=== PATIENT | male | born 1950 | race Caucasian/White ===

== ENCOUNTER → 2024-01-16 06:22 | Day surgery (SDC) | payer MEDICARE, OTHER, SELFPAY | LOC: GI 06:22 | PROVIDERS: ATTENDING PHYSICIAN Specialist | DX: Z12.11 Encounter for screening for malignant neoplasm of colon (principal); K57.30 Diverticulosis of large intestine without perforation or abscess without bleeding; K64.8 Other hemorrhoids; K29.70 Gastritis, unspecified, without bleeding; K22.89 Other specified disease of esophagus; R12 Heartburn; Z86.010 Personal history of colon polyps; Z80.0 Family history of malignant neoplasm of digestive organs | CPT/HCPCS: 45378; 43239; 88305 ==

== ENCOUNTER → 2024-03-18 07:37 | Outpatient (REF) | payer MEDICARE, OTHER, SELFPAY | LOC: RAD 07:37 | PROVIDERS: ATTENDING PHYSICIAN Specialist; FAMILY PHYSICIAN Family Medicine | DX: R51.9 Headache, unspecified (principal) | CPT/HCPCS: 70470; Q9967 ==

== ENCOUNTER → 2024-12-02 10:46 | Outpatient (REF) | payer MEDICARE, OTHER, SELFPAY ==
[2024-12-02 11:36] LABS: % Basophils 0.4 % (0-2); % Eosinophils 1.2 % (0-6); % Immature Granulocytes 0.4 % (0-0.5); % Lymphocytes 17.3 % (20.5-51.1); % Neutrophils 72.7 % (42.2-75.2); Absolute Eosinophils 0.1 10^3/uL (0-0.7); Absolute Lymphocytes 1.7 10^3/uL (1.2-3.4); Absolute Monocytes 0.8 10^3/uL (0.1-0.6); Absolute Neutrophils 7.1 10^3/uL (1.4-6.5); Hematocrit 49.7 % (39.0-52.0); Hemoglobin 17.2 g/dL (13.0-18.0); Mean Corp Hgb Conc. 34.6 g/dL (33.0-37.0); Mean Corpuscular Hgb 31.1 pg (27.0-31.0); Mean Corpuscular Volume 89.9 fL (80.0-94.0); Mean Platelet Volume 9.4 fL (7.4-10.4); Nucleated Red Blood Cells % 0 % (-); Platelet Count 210 10^3/uL (130-400); Red Blood Cell Count 5.53 10^6/uL (4.70-6.10); Red Cell Dist. Width 12.8 % (11.5-14.5); White Blood Cell Count 9.8 10^3/uL (4.8-10.8)
[2024-12-02 13:03] LABS: ALT (SGPT) 26 U/L (0-50); AST (SGOT) 25 U/L (17-59); Albumin 4.8 g/dl (3.5-5.0); Alkaline Phosphatase 86 U/L (38-126); Blood Urea Nitrogen 12 mg/dl (9-20); Calcium 9.6 mg/dl (8.4-10.2); Carbon Dioxide 29 mmol/L (22-30); Chloride 98 mmol/L (98-107); Glucose 92 mg/dl (70-99); Potassium 4.1 mmol/L (3.5-5.1); Sodium 137 mmol/L (135-145); Total Bilirubin 1.1 mg/dl (0.2-1.3); Total Protein 7.4 g/dl (6.3-8.2); eGFR > 60.00
[2024-12-02 13:47] LABS: Total Cholesterol 156 mg/dl (50-199); Triglyceride 68 mg/dl (10-149); Very Low Density Lipoprotein 13 mg/dl (0-30)
[2024-12-02 13:57] LABS: HDL Cholesterol 44 mg/dl; LDL Cholesterol, Calculated 99 mg/dl
== END ==
LOC: RAD 10:46
PROVIDERS: ATTENDING PHYSICIAN Family Medicine
DX: K57.92 Diverticulitis of intestine, part unspecified, without perforation or abscess without bleeding (principal); Z79.899 Other long term (current) drug therapy; K21.9 Gastro-esophageal reflux disease without esophagitis
CPT/HCPCS: 36415; 74177; 80053; 80061; 85025; Q9967

== ENCOUNTER → 2025-02-17 08:22 | Outpatient (REF) | payer MEDICARE, OTHER, SELFPAY | LOC: RAD 08:22 | PROVIDERS: ATTENDING PHYSICIAN Specialist; FAMILY PHYSICIAN Family Medicine | DX: R05.3 Chronic cough (principal) | CPT/HCPCS: 71046 ==

== ENCOUNTER 2025-07-07 22:55 | Emergency (ER) | payer MEDICARE, OTHER, SELFPAY ==
[2025-07-07 23:01] VITALS: BP 140/74
[2025-07-07 23:14] VITALS: BP 128/81
[2025-07-07 23:17] VITALS: BMI 24.1
--- NOTE | 2025-07-07 23:40 | ED.GENMED ---
History of Present Illness
General
Chief Complaint: Bowel Problem
Source: patient
Exam Limitations: none
Time Seen by Provider: 07/07/25 23:37
Nursing documentation reviewed up to this point in time: agreed with
History of Present Illness
History of Present Illness:
Note:
CHIEF COMPLAINT(S)
Abdominal pain with diarrhea and bloody stools
HISTORY OF PRESENT ILLNESS
The patient is a 74-year-old male with a history of ischemic colitis, suspected TIA, diverticulosis, GERD, who presents with abdominal pain, diarrhea, and bloody stools. Symptoms began yesterday with mild pain that felt similar to needing to
defecate but resolved spontaneously. Last night, the patient experienced sharp abdominal pain localized to the center and lower abdomen which resolved within 15 minutes. Following this, the patient experienced diarrhea, initially forming, then
loose, with episodes of red blood. The patient reports a significant amount of blood initially, which decreased with subsequent bowel movements and the last bowel movement he had was blood free. He has not had a bowel movement since. The patient
denies any similar bleeding since 2018, when hospitalized for ischemic colon and gastrointestinal bleeding. He was treated non-surgically with antibiotics. The most recent episode of diverticulitis occurred 6-7 months ago without bleeding, also
treated with antibiotics such as Flagyl. The patient has had no vomiting, fever, but experienced chills. The pain was sharp, resolved after a few minutes, and did not recur spontaneously since arrival at the facility. The patient denies any recent
pertinent change in bowel habits, except for constipation in the past for which he started daily fiber supplementation. Patient reports no history of atrial fibrillation.
PAST MEDICAL AND SURGICAL HISTORY
Ischemic colitis versus infectious colitis leading to hospital admission in 2018 with non-surgical management.
History of diverticulitis, most recent episode 6-7 months ago.
Scheduled for knee replacement surgery evaluation.
EXTERNAL RECORDS REVIEWED
According to the patient, they underwent colonoscopic evaluations approximately a year ago with findings of polyps but otherwise unremarkable. Follow-up with a application integrator, Dr. johnson, was reported.
CHRONIC MEDICAL CONDITIONS SIGNIFICANTLY AFFECTING CARE
Ischemic colon
Diverticulitis
SOCIAL DETERMINANTS AFFECTING HEALTH
No social determinants affecting health were discussed during this visit.
MEDICATIONS
Aspirin (baby aspirin).
REVIEW OF SYSTEMS
- Gastrointestinal: Diarrhea with blood, episodes of abdominal pain, no nausea or vomiting.
- Constitutional: Chills without fever or confirmed elevated temperature.
PHYSICAL EXAM
General: Alert, no acute distress.
Skin: Warm, dry.
Head: Normocephalic, atraumatic.
Neck: Supple, trachea midline.
Eyes, Ears, Nose, Mouth, and Throat: Oral mucosa moist.
Cardiovascular: Normal peripheral perfusion, No edema.
Respiratory: Respirations are non-labored.
Gastrointestinal: Abdomen nondistended, nontender to palpation
Back: Normal range of motion, Normal alignment.
Musculoskeletal: Normal ROM, normal strength.
Neurological: Alert and oriented to person, place, time, and situation, No focal neurological deficit observed.
Psychiatric: Cooperative, appropriate mood & affect.
PLAN
1. Perform a CT scan
2. Complete blood work to assess for potential anemia or other abnormalities.
3. Ensure follow-up with application integrator for continuity of care.
DIFFERENTIAL DIAGNOSIS
The Differential Diagnosis includes, in no particular order and is not limited to:
- Diverticulitis
- Gastrointestinal bleeding secondary to ischemic bowel disease
- Infectious and was treated with IV (e.g., due to Shigella or E. coli)
- Inflammatory bowel disease
- Colonic polyps or malignancy
- Hemorrhoidal bleeding
- Peptic ulcer disease with bleeding
- Mesenteric ischemia
- Foodborne illness
- Coagulopathy-induced gastrointestinal bleeding
CHART REVIEW
Reviewed discharge note from 08/12/2017, patient seen for colitis he was treated with IV fluids, IV antibiotics, and conservative care and he had slow improvement. He was discharged on antibiotics however they do feel that his presentation
represented possible component of ischemic colitis
Reviewed colonoscopy from 01/08/2024 patient seen for colonoscopy had scattered small mouth diverticula and internal hemorrhoids with no indication for repeat colonoscopy due to absence of polyps
MDM/DISPOSITION
The patient is a 74-year-old male with a history of ischemic colitis, suspected TIA, diverticulosis, GERD, who presents with abdominal pain, diarrhea, and bloody stools. Symptoms began yesterday with mild pain that felt similar to needing to
defecate but resolved spontaneously. Currently, he is comfortable and gets intermittent crampy pain. He has not had a bowel movement since he has been in the ER. Did attempt to get stool sample however patient is not able to provide 1. His
vitals are stable he is afebrile. Reviewed blood work, no leukocytosis noted increase in immature granulocytes. CMP unremarkable. CT scan shows segmental colitis associated with diverticulosis. Will intiate abx considering elderly patient,
large-volume bloody diarrhea. Stressed follow-up with Dr. Johnson. Did offer patient admission for symptomatic management and IV antibiotics however patient is afebrile, has no white count, and feels improved. Want to go home. Think this is
reasonable. Patient stable for discharge.
Past History
Past History
ED Past Medical History: GERD and Other (Previous TIA on aspirin, diverticulosis, previous L4-L5 laminectomy, recent fractured scaphoid on his right wrist. Ischemic colitis)
ED Past Surgical History: Orthopedic
Social History
Tobacco: Non-smoker
Alcohol: Occasional
Drug: None
Personal:
Living: with family
Family History
Family History: Negative Diabetes, Hypertension or CAD
Review of Systems
Review of Systems
All Other Systems: ROS reviewed and negative except as documented in HPI and ROS
Phy Exam
Physical Exam
Physical Exam:
see hpi
Course
Orders/Labs/Results
Orders:
Orders
07/07/25 23:50
Complete Blood Count/With Diff Urgent
Lactic Acid Urgent
07/07/25 23:55
0.9% Sodium Chloride 500 ml [Nss] 500 ml IV BOLUS
07/08/25
CT Abd/Pel (IV only)-DH only Urgent
Reason For Exam: left sided ab pain
07/08/25 01:30
Urinalysis Reflex To Culture Urgent
Urine Microscopic Reflex Cult Urgent
07/08/25 01:47
Comprehensive Metabolic Panel Urgent
07/08/25 04:38
Ciprofloxacin HCl [Cipro] 500 mg PO NOW STA
07/08/25 04:46
MetroNIDAZOLE [Flagyl] 500 mg PO NOW STA
Abnormal Lab Results
07/08/25 07/08/25 07/08/25
00:04 01:30 01:47
MCH 31.1 H pg
(27.0-31.0)
Abs Immat Gran (auto) 0.1 H 10^3/uL
(0-0.05)
Absolute Neuts (auto) 7.5 H 10^3/uL
(1.4-6.5)
Absolute Lymphs (auto) 1.0 L 10^3/uL
(1.2-3.4)
Absolute Monos (auto) 0.8 H 10^3/uL
(0.1-0.6)
Immature Gran % 1.5 H %
(0-0.5)
Neutrophils % 78.8 H %
(42.2-75.2)
Lymphocytes % 10.3 L %
(20.5-51.1)
Chloride 109 H mmol/L
(98-107)
Glucose 101 H mg/dl
(70-99)
Ur Occult Blood Reflex 2+ A
(Negative)
Urine RBC 7-10 A /HPF
(0-2)
Urine Albumin (Reflex) 1+ A
(Neg - Trace)
07/08/25 00:04
07/08/25 01:47
Vital Signs
Initial and Last Documented VS:
Initial Vital Signs
Temp Pulse Resp BP Pulse Ox
98 F 76 22 140/74 96
07/07/25 23:01 07/07/25 23:01 07/07/25 23:01 07/07/25 23:01 07/07/25 23:01
Last Documented Vital Signs
Temp Pulse Resp BP Pulse Ox
98 F 84 14 129/80 97
07/07/25 23:01 07/08/25 01:20 07/08/25 01:20 07/08/25 04:51 07/08/25 01:20
*Pulse Oximetry
SaO2: 96
Oxygen Mode of Delivery: Room air
Patient hypoxic: no
*Critical Care Note
Total Time (30-74mins, 75-104mins- exclusive of procedures): Not Applicable
ED Attending Note
-
Portions of this chart may have been created with voice recognition software.� Occasional wrong word or��sound alike� substitutions may have occurred due to the inherent limitations of voice recognition software.
Discharge Plan
Departure
Patient Disposition: Home (Routine Discharge)
Date of Disposition: 07/08/25
Time of Disposition: 04:52
Patient with high blood pressure during this ER visit?: Yes
Condition: Good
Discharge Problem:
Acute colitis
Instructions: Colitis, Diverticulosis, BLOOD PRESSURE
Prescriptions:
New
metronidazole 500 mg tablet
500 mg PO TID 7 Days Qty: 21 0RF
ciprofloxacin HCl 500 mg tablet
500 mg PO BID Qty: 14 0RF
No Action
esomeprazole magnesium [Nexium] 40 MG capsule,delayed release(DR/EC)
40 mg PO DAILY
aspirin 81 MG tablet,delayed release (DR/EC)
81 mg PO DAILY 0RF
metronidazole 500 MG tablet
500 mg PO TID Qty: 30 0RF
levofloxacin 500 MG tablet
500 mg PO DAILY Qty: 10 0RF
Referrals:
Bobo Cabello MD [Family Provider, Family Practice]
Leland Johnson MD [Active, Gastroenterology] - Call in 1-3 days for appt
Activity Restrictions/Additional Instructions:
Please follow-up with Dr. Johnson. Please follow-up with your primary care provider. Antibiotics were sent to your pharmacy. Please stick to a bland diet for the next week and stay well-hydrated. Please continue to monitor your symptoms.
PLEASE RETURN EMERGENCY DEPARTMENT IMMEDIATELY SHOULD YOU DEVELOP FEVERS OR CHILLS, DIZZINESS, LIGHTHEADEDNESS, CHEST PAIN, SHORTNESS OF BREATH, PERSISTENT DIARRHEA, INTRACTABLE NAUSEA OR VOMITING, OR ANY OTHER SIGNS OR SYMPTOMS WORRISOME TO
YOU!!!!!!
Interventions
Interventions:
*Risk Screen - Suicide Last Done: 07/07/25 23:01
*General Assessment Last Done: 07/08/25 05:00
*Neglect/Abuse Screening Last Done: 07/07/25 23:01
*ED- Fall Risk Assessment Last Done: 07/08/25 05:00
*ED COVID-19 Vaccine History Last Done: 07/08/25 05:00
*Nursing Disposition Last Done: 07/08/25 05:00
ZC-Egkndp-Gijiwhhpmy Assessment Last Done: 07/07/25 23:17
Discharge Date and Time
Discharge Date/Time: 07/08/25 05:01
Print Language: TRISTANIAN
[2025-07-08] VITALS: BP 124/70
[2025-07-08] MEDS: NSS 500 IV (00:13)
[2025-07-08 00:30] LABS: Hematocrit 46.0 % (39.0-52.0); Hemoglobin 16.4 g/dL (13.0-18.0); Mean Corp Hgb Conc. 35.7 g/dL (33.0-37.0); Mean Corpuscular Volume 87.3 fL (80.0-94.0); Nucleated Red Blood Cells % 0 % (-); Platelet Count 188 10^3/uL (130-400); Red Cell Dist. Width 12.8 % (11.5-14.5)
[2025-07-08 01:00] VITALS: BP 123/69
--- NOTE | 2025-07-08 02:40 | DOWNTIME ---
There was a [employer] Downtime on 07/08/2025 from 0100 to 07/08/2025 at 0235. Downtime documentation of patient's care, including medication administrations, has been reconciled in the electronic record per guidelines. Refer to the
patient's paper chart under the miscellaneous tab to see printed paper medication records and downtime forms.
[2025-07-08 02:43] LABS: Urine Character Clear (Clear)
[2025-07-08 02:45] LABS: Urine White Cell 0-2 /HPF (0-5)
[2025-07-08 03:28] LABS: ALT (SGPT) 25 U/L (0-50); AST (SGOT) 28 U/L (17-59); Albumin 4.3 g/dl (3.5-5.0); Alkaline Phosphatase 68 U/L (38-126); Blood Urea Nitrogen 12 mg/dl (9-20); Calcium 9.2 mg/dl (8.4-10.2); Carbon Dioxide 22 mmol/L (22-30); Chloride 109 mmol/L (98-107); Estimated Creatinine Clearance 88 ml/min; Glucose 101 mg/dl (70-99); Potassium 4.4 mmol/L (3.5-5.1); Sodium 138 mmol/L (135-145); Total Protein 6.7 g/dl (6.3-8.2); eGFR > 60.00
[2025-07-08] MEDS: CIPRO 500 MG PO (04:49)
[2025-07-08] MEDS: FLAGYL 500 MG PO (04:49)
[2025-07-08 04:51] VITALS: BP 129/80
== END 2025-07-08 05:01 | disposition home or self-care (01) ==
LOC: EMR 22:55
PROVIDERS: Physician Assistant; EMERGENCY PHYSICIAN Emergency Medicine; FAMILY PHYSICIAN Family Medicine
DX: K52.9 Noninfective gastroenteritis and colitis, unspecified (principal); K57.30 Diverticulosis of large intestine without perforation or abscess without bleeding; K21.9 Gastro-esophageal reflux disease without esophagitis; Z79.82 Long term (current) use of aspirin
CPT/HCPCS: 99284; 74177; 80053; 81003; 81015; 83605; 85025; Q9967

== ENCOUNTER → 2025-08-31 07:13 | Outpatient (REF) | payer MEDICARE, OTHER, SELFPAY ==
[2025-08-31 09:16] LABS: Urine Character Clear (Clear)
[2025-08-31 09:22] LABS: Hematocrit 49.4 % (39.0-52.0); Hemoglobin 17.3 g/dL (13.0-18.0); Mean Corp Hgb Conc. 35.0 g/dL (33.0-37.0); Mean Corpuscular Volume 91.0 fL (80.0-94.0); Nucleated Red Blood Cells % 0 % (-); Platelet Count 194 10^3/uL (130-400); Red Cell Dist. Width 13.0 % (11.5-14.5)
[2025-08-31 09:25] LABS: INR 0.97; PT 13.2 Sec (11.4-14.6)
[2025-08-31 09:26] LABS: APTT 29.1 Sec (23.4-35.0)
[2025-08-31 09:36] LABS: Glycohemoglobin (HgbA1c) 5.2 % (4.0-5.6)
[2025-08-31 10:04] LABS: ALT (SGPT) 33 U/L (0-50); AST (SGOT) 29 U/L (17-59); Albumin 4.7 g/dl (3.5-5.0); Alkaline Phosphatase 72 U/L (38-126); Blood Urea Nitrogen 10 mg/dl (9-20); Calcium 9.5 mg/dl (8.4-10.2); Carbon Dioxide 29 mmol/L (22-30); Chloride 105 mmol/L (98-107); Glucose 94 mg/dl (70-99); HDL Cholesterol 34 mg/dl; LDL Cholesterol, Calculated 95 mg/dl; Potassium 5.1 mmol/L (3.5-5.1); Sodium 142 mmol/L (135-145); Total Protein 7.4 g/dl (6.3-8.2); Very Low Density Lipoprotein 20 mg/dl (0-30); eGFR > 60.00
[2025-08-31 10:27] LABS: PSA, Total - Screen 1.46 ng/ml (0.0-4.0); TSH 2.42 uIU/ml (0.47-4.68)
== END ==
LOC: RCS 07:13
PROVIDERS: ATTENDING PHYSICIAN Orthopaedic Surgery Sports Medicine; FAMILY PHYSICIAN Family Medicine
DX: M17.11 Unilateral primary osteoarthritis, right knee (principal); Z01.818 Encounter for other preprocedural examination; R79.1 Abnormal coagulation profile; R73.09 Other abnormal glucose; Z00.00 Encounter for general adult medical examination without abnormal findings; E78.2 Mixed hyperlipidemia; K76.0 Fatty (change of) liver, not elsewhere classified; Z80.0 Family history of malignant neoplasm of digestive organs; Z86.73 Personal history of transient ischemic attack (TIA), and cerebral infarction without residual deficits; K59.01 Slow transit constipation; E66.3 Overweight; Z12.5 Encounter for screening for malignant neoplasm of prostate
CPT/HCPCS: 36415; 80053; 80061; 81003; 83036; 84443; 85025; 85610; 85730; 93005; G0103